=== PATIENT | male | born 1985 | race Caucasian/White ===

== ENCOUNTER 2022-02-16 23:58 | Observation (INO) ==
[2022-02-17] MEDS ORDERED: SODIUM CHLORIDE 0.9% 500 ML IV STA (00:19)
--- NOTE | 2022-02-17 00:21 | Emergency Department Note ---
Impression & Plan Elevated troponin ADMIT ED Provider Note HPI: The patient is a 36-year-old male who presents to the emergency department with a chief complaint of chest pain. Patient states that earlier this evening he was shoveling snow, he states his hands and feet felt very cold and therefore he was concerned and wanted to come to the emergency department. Patient states that when he got into the car with his he developed some substernal chest pain. Patient states the pain is mild in nature and is largely resolved by the time he arrived to the ED. On arrival here to the ED the patient was noted to be hypertensive but otherwise hemodynamically stable and in no acute distress on my initial evaluation. ROS: -Cardio: Nonspecific chest discomfort *10 point review systems was conducted and is otherwise negative unless stated above *Outpatient medications and allergy history reviewed PE: General: Alert HEENT: Normocephalic, trachea midline Eyes: Extraocular eye movement is intact, no scleral erythema Pulmonary: Clear to auscultation bilaterally, no wheezing Cardio: Regular rate and rhythm GI: Abdomen is soft, nontender : No suprapubic tenderness MSK: No evidence of trauma or malformation of the extremities, no edema Skin: No evidence of rash Neuro: Alert, no focal deficits Psychiatric: Cooperative campus monitor: - An order was placed for continuous cardiac monitoring - Patient was noted to be in sinus rhythm with a rate of 83 EKG: Rate: 83 Rhythm: Normal sinus rhythm Intervals: Within normal limits ST changes: No ST elevation Time: 0007 EKG #2: Rate: 82 Rhythm: Normal sinus rhythm Intervals: Within normal limits ST changes: No ST elevation Time: 0133 Interventions provided in ED: -Aspirin, normal saline bolus Medical Decision Making: Patient presented to the emergency department the chief complaint of a nonspecif ic episode of chest discomfort. He was shoveling snow earlier today. EKG does not show any acute ischemic changes, repeat EKG performed approximately 1-1/2 hours later does not show any significant change either. Patient states his chest pain is improved. Patient's lab work shows that his troponin resulted elevated at approximately 64. Chest x-ray does not show any acute disease per my interpretation. D-dimer is within normal limits, low suspicion for PE. Patient does have a history of tobacco abuse, otherwise does not have any known risk factors for ACS, given his elevated troponin he was given an aspirin in the ED, he appears well on my reassessment and is hemodynamically stable. He was informed of the above findings, will send viral panel testing to evaluate for any potential viral myocarditis. At this time patient will be admitted to the hospitalist service for further care. Case was discussed with the on-call hospitalist for [facility]ait[facility], Dr. Cesar, patient was admitted in stable condition. Diagnosis: 1. Elevated troponin 2. Nonspecific chest discomfort, acute Disposition: Admission Bryant Acuña DO Emergency Medicine Past Med/Surg History Social History Smoking Status: Current every day smoker Tobacco Type: E-cigarettes / Vaping Preferred Language: Yoruba Feels Safe at Home: Yes Allergies Allergies Allergy/AdvReac Type Severity Reaction Status Date / Time bee venom protein (honey bee) Allergy Severe THROAT Verified 02/17/22 00:39 CLOSES orange juice Allergy Severe THROAT Verified 02/17/22 00:39 CLOSES ibuprofen Allergy Intermediate RASH/HIVES Verified 02/17/22 00:39 Penicillins Allergy Intermediate RASH/HIVES Verified 02/17/22 00:39 Home Meds Home Medications Medication Instructions Recorded Confirmed ascorbic acid (vitamin C) 500 mg 0 mg PO DAILY 02/17/22 02/17/22 tablet (Vitamin C) famotidine 20 mg tablet 20 mg PO DAILY PRN 02/17/22 02/17/22 HEARTBURN/INDIGESTION zinc gluconate 50 mg tablet 50 mg PO DAILY 02/17/22 02/17/22 Results & Data (ED) Vital Signs Vital Signs - 24 hr 02/17/22 00:01 02/17/22 00:24 02/17/22 00:40 Temperature 37.2 C Temperature Source Temporal Artery Scan Pulse Rate 98 H Pulse Rate [Left Finger] 92 H Respiratory Rate 18 22 Respiratory Effort / Characteristics Non-Labored Spontaneous Respiratory Depth Normal Blood Pressure 179/112 H Blood Pressure [Right Arm] 147/105 H Blood Pressure Mean 134 Blood Pressure Mean [Right Arm] 119 Blood Pressure Position Sitting Blood Pressure Position [Right Arm] Sitting Pulse Oximetry 97 95 98 Oxygen Delivery Method Room Air Room Air Room Air Sepsis New/Unexplained Change in Mental Status No Sepsis Action Taken by Nursing No Action Required Laboratory Data Result diagrams: 02/17/22 00:33 02/17/22 00:33 Lab Results 02/17/22 02/17/22 02/17/22 Range/Units 00:33 00:33 00:33 WBC 10.29 (4.8-10.8) K/ul RBC 4.61 L (4.63-6.08) M/uL Hgb 14.7 (14.0-18.0) g/dl Hct 40.9 (40.1-51.0) % MCV 88.7 (80.0-100.0) fL MCH 31.9 (25.0-34.0) pg MCHC 35.9 (32.0-36.0) g/dL RDW Std Deviation 39.8 (36.4-46.3) fL RDW Coeff of Huber 12.3 (11.5-14.5) % Plt Count 181 (130-400) K/uL MPV 10.0 (9.4-12.4) fL Immature Gran % (Auto) 0.3 % Neut % (Auto) 75.3 % Lymph % (Auto) 16.6 % [place] % (Auto) 7.1 % Eos % (Auto) 0.2 % Baso % (Auto) 0.5 % Neut # (Auto) 7.75 H (1.4-6.5) K/uL Lymph # (Auto) 1.71 (1.2-3.4) K/uL [place] # (Auto) 0.73 (0.24-0.82) K/uL Eos # (Auto) 0.02 (0-0.50) K/uL Baso # (Auto) 0.05 (0-0.2) K/uL Immature Gran # (Auto) 0.03 H (0.00-0.02) K/uL D-Dimer 270 (0-500) ug/L FEU Sodium 139 (136-145) mmol/L Potassium 3.5 (3.5-5.1) mmol/L Chloride 103 (98-107) mmol/L Carbon Dioxide 22 (21-32) mmol/L Anion Gap 14 H (3-11) BUN 18 (6-23) mg/dl Creatinine 0.98 (0.6-1.4) mg/dl Est Cr Clr Drug Dosing 105.2 ml/min Est GFR ( Amer) 115.3 ml/min Est GFR (Non-Af Amer) 99.5 ml/min BUN/Creatinine Ratio 18.4 (10-20) Glucose 109 H (70-99(Fasting)) mg/dl Calcium 9.7 (8.5-10.1) mg/dl Total Bilirubin 0.8 (0.2-1.0) mg/dl AST 25 (13-39) U/L ALT 32 (7-52) U/L Alkaline Phosphatase 65 (34-104) U/L Troponin I High Sens 63.4 H* (0-20) pg/ml Total Protein 7.3 (6.0-8.3) gm/dl Albumin 4.8 (3.4-5.0) gm/dl Globulin 2.5 (2.5-4.0) gm/dl Albumin/Globulin Ratio 1.9 (0.9-2) Lipase 23 (11-82) U/L Administered Medications Discontinued Medications Sodium Chloride (Nss) 500 mls @ 999 mls/hr IV .Q31M STA Stop: 02/17/22 00:49 Last Admin: 02/17/22 00:46 Dose: 999 mls/hr Documented By: Discharge Plan Visit Data Chief Complaint: Chest Pain Stated Complaint: CHEST PAIN, BP 172/113 ED Provider: Bryant Acuña Discharge Problem: Elevated troponin Forms Stand Alone Forms: My [facility] Prescriptions Prescriptions: No Action famotidine 20 mg Tablet 20 mg PO DAILY PRN (Reason: HEARTBURN/INDIGESTION) ascorbic acid (vitamin C) [Vitamin C] 500 mg Tablet 0 mg PO DAILY Rx Instructions: PT UNSURE OF STRENGTH zinc gluconate 50 mg Tablet 50 mg PO DAILY Referrals Referrals: PCP,NO [Primary Care Provider] -
[2022-02-17 00:50] LABS: Basophils # (auto) 0.05 K/uL (0-0.2); Basophils % (auto) 0.5 %; Eosinophils # (auto) 0.02 K/uL (0-0.50); Eosinophils % (auto) 0.2 %; Hematocrit (blood only) 40.9 % (40.1-51.0); Hemoglobin 14.7 g/dl (14.0-18.0); Immature Granulocytes # (auto) 0.03 K/uL (0.00-0.02); Immature Granulocytes % (auto) 0.3 %; Lymphocytes # (auto) 1.71 K/uL (1.2-3.4); Lymphocytes % (auto) 16.6 %; Mean Corpuscular Hemoglobin 31.9 pg (25.0-34.0); Mean Corpuscular Hgb Conc 35.9 g/dL (32.0-36.0); Mean Corpuscular Volume 88.7 fL (80.0-100.0); Monocytes # (auto) 0.73 K/uL (0.24-0.82); Monocytes % (auto) 7.1 %; Neutrophils # (auto) 7.75 K/uL (1.4-6.5); Neutrophils % (auto) 75.3 %; Platelet Count 181 K/uL (130-400); RDW Coefficient of Variation 12.3 % (11.5-14.5); RDW Standard Deviation 39.8 fL (36.4-46.3); Red Blood Count 4.61 M/uL (4.63-6.08); White Blood Count 10.29 K/ul (4.8-10.8)
[2022-02-17 01:08] LABS: D Dimer 270 ug/L FEU (0-500)
[2022-02-17 01:17] LABS: Albumin Globulin Ratio 1.9 (0.9-2); Albumin Level 4.8 gm/dl (3.4-5.0); BUN Creatinine Ratio 18.4 (10-20); Bilirubin,Total 0.8 mg/dl (0.2-1.0); Calcium 9.7 mg/dl (8.5-10.1); Creatinine Clr Calc Pharmacy 105.2 ml/min; Est GFR (African American) 115.3 ml/min; Est GFR (Non-African American) 99.5 ml/min; Globulin 2.5 gm/dl (2.5-4.0); Potassium 3.5 mmol/L (3.5-5.1); Total Protein 7.3 gm/dl (6.0-8.3)
[2022-02-17 01:27] LABS: Troponin I High Sensitivity 63.4 pg/ml (0-20)
[2022-02-17] MEDS ORDERED: ASPIRIN CHEW 324 MG PO STA (01:30)
[2022-02-17 02:02] LABS: Partial Thromboplastin Ratio 0.9; Partial Thromboplastin Time 25.4 Seconds (21.0-31.0)
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
[2022-02-17 02:45] LABS: Influenza A virus by PCR Negative (Neg); Influenza B virus by PCR Negative (Neg); RSV by PCR Negative (Neg); SARS CoV2 RNA(COVID-19) Ceph NEGATIVE (Negative)
[2022-02-17] MEDS ORDERED: MULTI-VITAMIN INFUSION 10 ML, THIAMINE HCL 100 MG, FOLIC ACID 1 MG in SODIUM CHLORIDE 0... IV STA (02:52)
[2022-02-17 03:23] LABS: Troponin I High Sensitivity 65.8 pg/ml (0-20)
[2022-02-17 03:29] LABS: Magnesium 1.9 mg/dl (1.7-2.4)
[2022-02-17] MEDS ORDERED: OPTIRAY 350 100ml IV ONE (03:33)
[2022-02-17 03:34] LABS: Appearance Urine Clear (Clear); Bilirubin Urine Negative (Negative); Blood Urine Negative (Negative); Color Urine Yellow; Glucose Urine UA Negative (Negative); Ketones Urine 3+ (Negative); Leukocyte Esterase Urine Negative (Negative); Nitrite Urine Negative (Negative); Protein Urine Negative (Negative); Urobilinogen Urine Negative (Negative); pH Urine 5.5 (4.5-7.5)
[2022-02-17 04:00] LABS: Lyme Ab IgG w/WB Rflx Negative (Negative); Lyme Ab IgM w/WB Rflx Negative (Negative)
[2022-02-17 04:02] LABS: Amphetamines+Metham, Urine Neg (Neg); Barbiturates, Urine Neg (Neg); Benzodiazepine, Urine Neg (Neg); Cocaine, Urine Neg (Neg); MDMA (Ecstacy), Urine Neg (Neg); Methadone, Urine Neg (Neg); Opiate, Urine Neg (Neg); Phencyclidine, Urine Neg (Neg)
[2022-02-17] MEDS ORDERED: ACETAMINOPHEN 325 MG TAB PO PRN (04:06)
[2022-02-17] MEDS ORDERED: FAMOTIDINE 20 MG TAB PO PRN (04:06)
[2022-02-17] MEDS ORDERED: NITROGLYCERIN SL 0.4 MG/TAB TAB SL PRN (04:06)
[2022-02-17] MEDS ORDERED: oxyCODONE HCL IR 5 MG TAB (IMMEDIATE RELEASE) PO PRN (04:06)
[2022-02-17] MEDS ORDERED: LORazepam 0.5 MG TAB PO PRN (04:06)
[2022-02-17] MEDS ORDERED: PROMETHAZINE HCL 12.5 MG in SODIUM CHLORIDE 0.9% 50 ML IV PRN (04:06)
--- NOTE | 2022-02-17 08:07 | XRay Report ---
XR chest 1V portable HISTORY: Left-sided Chest pain, nonspecific COMPARISON: Chest 04/08/2011. FINDINGS: The lungs are clear. Cardiac silhouette is normal in size. No pleural effusions. No pneumot horax. IMPRESSION: No acute process. ACT 112: Negative or not required by law. Electronically signed by: Sharath Mark M.D. 02/17/2022 8:06 AM
--- NOTE | 2022-02-17 08:16 | CT Scan Report ---
ABDOMEN AND PELVIS CT WITH IV CONTRAST CT DOSE: 404.41 mGy.cm HISTORY: Generalized abdominal pain. TECHNIQUE: Multiaxial CT images of the abdomen and pelvis were performed following the use of intrave nous contrast. A dose lowering technique was utilized adhering to the principles of ALARA. COMPARISON STUDY: None. FINDINGS: The lung bases are clear. No pneumoperitoneum. No pneumatosis. Deformity within the left il iac wing likely represents an old, healed fracture. No acute fractures identified. The liver, gallbla dder the liver, gallbladder, spleen, adrenal glands, pancreas, and kidneys are within normal limits. No ureteral stones. No hydronephrosis. Bladder wall thickening is likely due to underdistention. The main portal vein is patent. No retroperitoneal lymphadenopathy. Normal caliber abdominal aorta. No pe lvic lymphadenopathy or pelvic free fluid. A few colonic diverticula. No evidence for acute diverticu litis. No bowel wall thickening or obstruction. Normal appendix. IMPRESSION: 1. No bowel wall thickening or obstruction. 2. Normal appendix. 3. No hydronephrosis. 4. Mild bladder wall thickening. This is likely due to underdistention. ACT 112: Negative or not required by law. Electronically signed by: Sharath Mark M.D. 02/17/2022 8:14 AM
[2022-02-17] MEDS ORDERED: ENOXAPARIN INJ 40 MG/0.4 ML SYR SQ SCH (09:00)
[2022-02-17] MEDS ORDERED: FLUARIX QUADRIVALENT 0.5 ML SYR IM ONE (09:00)
--- NOTE | 2022-02-17 09:05 | Electrocardiogram Report ---
Test Reason : Blood Pressure : / mmHG Vent. Rate : 070 BPM Atrial Rate : 070 BPM P-R Int : 134 ms QRS Dur : 086 ms QT Int : 410 ms P-R-T Axes : 026 007 005 degrees QTc Int : 442 ms Normal sinus rhythm Normal ECG When compared with ECG of 17-FEB-2022 01:33, No significant change was found Confirmed by Leonard Vallejo ([id number]) on 02/17/2022 9:05:38 AM Referred By: REFERRED SELF Confirmed By:Leonard Vallejo
--- NOTE | 2022-02-17 09:05 | Electrocardiogram Report ---
Test Reason : Blood Pressure : / mmHG Vent. Rate : 083 BPM Atrial Rate : 083 BPM P-R Int : 136 ms QRS Dur : 102 ms QT Int : 350 ms P-R-T Axes : 029 016 008 degrees QTc Int : 411 ms Normal sinus rhythm Normal ECG No previous ECGs available Confirmed by Leonard Vallejo ([id number]) on 02/17/2022 9:05:30 AM Referred By: REFERRED SELF Confirmed By:Leonard Valeljo
--- NOTE | 2022-02-17 09:17 | Electrocardiogram Report ---
Test Reason : Blood Pressure : / mmHG Vent. Rate : 082 BPM Atrial Rate : 082 BPM P-R Int : 130 ms QRS Dur : 082 ms QT Int : 370 ms P-R-T Axes : 035 010 009 degrees QTc Int : 432 ms Normal sinus rhythm with sinus arrhythmia Normal ECG When compared with ECG of 17-FEB-2022 00:07, No significant change was found Confirmed by Leonard Vallejo ([id number]) on 02/17/2022 9:17:16 AM Referred By: REFERRED SELF Confirmed By:Leonard Vallejo
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
[2022-02-17] MEDS ORDERED: LACTATED RINGER'S 1,000 ML IV SCH (19:00)
[2022-02-18] MEDS ORDERED: MULTIVITAMIN TAB PO SCH (09:00)
[2022-02-18] MEDS ORDERED: FOLIC ACID 1 MG TAB PO SCH (09:00)
[2022-02-18] MEDS ORDERED: THIAMINE HCL 100 MG TAB PO SCH (09:00)
== END 2022-02-17 18:01 | disposition home or self-care (01) ==
LOC: ED 23:58 → 1E 23:58